=== PATIENT | female | born 1940 | race Caucasian/White ===

== ENCOUNTER → 2017-09-04 | Outpatient (CLI) | payer MEDICARE, OTHER ==
--- NOTE | 2017-09-05 08:44 | RAD ---
DATE: 09/04/2017 EXAM: MAMMO ELEN SCREENING BILATERAL HISTORY: Routine screening COMPARISON: 09/01/2016 This study was interpreted with the benefit of Computerized Aided Detection (CAD). The breast parenchyma is heterogeneously dense, which could reduce sensitivity of mammography. Breast parenchyma level C. FINDINGS: 2-D and 3-D tomosynthesis imaging was performed in CC and MLO projections. The fibroglandular tissues are heterogeneous in a somewhat nodular pattern. No new or enlarging breast densities seen. Benign type calcifications are again noted. No suspicious microcalcifications have developed. IMPRESSION: Stable mammograms without evidence of malignancy. BI-RADS CATEGORY: 2 BENIGN FINDING(S) RECOMMENDED FOLLOW-UP: 12M 12 MONTH FOLLOW-UP PQRS compliance statement: Patient information was entered into a reminder system with a target due date for the next mammogram. Mammography is a sensitive method for finding small breast cancers, but it does not detect them all and is not a substitute for careful clinical examination. A negative mammogram does not negate a clinically suspicious finding and should not result in delay in biopsying a clinically suspicious abnormality. "Our facility is accredited by the [employer] Mammography Program."
== END | disposition home or self-care (01) ==
LOC: MAMMO 12:55
PROVIDERS: ATTEND Internal Medicine
DX: Z12.31 Encounter for screening mammogram for malignant neoplasm of breast (principal)
CPT/HCPCS: 77063; 77067

== ENCOUNTER → 2018-09-05 | Outpatient (CLI) | payer MEDICARE, OTHER ==
--- NOTE | 2018-09-06 08:36 | RAD ---
DATE: 09/05/2018 EXAM: MAMMO ELEN SCREENING BILATERAL HISTORY: Routine screening COMPARISON: 09/04/2017 This study was interpreted with the benefit of Computerized Aided Detection (CAD). Breast Density: HETERO The breast parenchyma is heterogenously dense, which could reduce sensitivity of mammography. Breast parenchyma level C. FINDINGS: 2-D and 3-D tomosynthesis imaging was performed in CC and MLO projections. No new or enlarging breast densities are seen. Minimal benign type calcifications are present. No suspicious microcalcifications have developed. IMPRESSION: Stable mammograms without evidence of malignancy BI-RADS CATEGORY: 2 BENIGN FINDING(S) RECOMMENDED FOLLOW-UP: 12M 12 MONTH FOLLOW-UP PQRS compliance statement: Patient information was entered into a reminder system with a target due date for the next mammogram. Mammography is a sensitive method for finding small breast cancers, but it does not detect them all and is not a substitute for careful clinical examination. A negative mammogram does not negate a clinically suspicious finding and should not result in delay in biopsying a clinically suspicious abnormality. "Our facility is accredited by the [employer] Mammography [employer]."
== END | disposition home or self-care (01) ==
LOC: MAMMO 14:07
PROVIDERS: ATTEND Internal Medicine
DX: Z12.31 Encounter for screening mammogram for malignant neoplasm of breast (principal)
CPT/HCPCS: 77063; 77067

== ENCOUNTER → 2020-09-29 | Outpatient (CLI) | payer MEDICARE, OTHER ==
--- NOTE | 2020-09-29 13:44 | RAD ---
BILATERAL SCREENING MAMMOGRAM History: Routine screening. Comparison: Bilateral mammogram September 05, 2018. Technique: Routine digital mammogram views were obtained. Findings: Breast Tissue Density D :The breasts are extremely dense, which lowers the sensitivity of mammography . Parenchymal trabeculations have mildly increased. There is anterior skin thickening that is mildly wo rse. There are no dominant masses, suspicious microcalcifications or architectural distortion. There are a few benign calcifications, stable. IMPRESSION: 1. No mammographic evidence of malignancy. Recommend routine screening. 2. Bilateral parenchymal trabeculations have mildly increased. Bilateral anterior skin thickening is mildly worse. Considerations for these findings include volume overload or CHF or impaired central v enous return. Correlate for clinical symptoms. BI-RADS category 2: Benign findings. The images were reviewed with computer aided detection. Patient information is entered into the reminder system with a target due date for the next screening mammogram. Mammography is the most sensitive method for finding small breast cancers, but it does not detect the m all and is not a substitute for careful clinical examination. A negative mammogram does not negate a clinically suspicious finding and should not result in delay in biopsying a clinically suspicious a bnormality. "Our facility is accredited by the [employer] Mammography Program." Electronically signed by: Valerio Romero MD (09/29/2020 1:42 PM) [facility]
== END ==
LOC: MAMMO 08:20
PROVIDERS: ATTEND Internal Medicine
DX: Z12.31 Encounter for screening mammogram for malignant neoplasm of breast (principal)
CPT/HCPCS: 77067

== ENCOUNTER 2020-12-23 10:52 | Emergency (ER) | payer MEDICARE, OTHER ==
[~2020-12-23] VITALS: Ht 172.7 cm; Wt 57.0 kg
--- NOTE | 2020-12-23 11:24 | PHYS DOC ---
Adult General Chief Complaint Chief Complaint: SYNCOPE HPI HPI Patient is a pleasant 80-year-old female presenting for presyncopal event. Reports she was outside in the heat and humidity performing a group cardiovascular workout when near the end of her workout she started feeling lightheaded. She reports she acknowledged her symptoms is similar exertional syncope is happened in the past and she ambulated to local bench where she sat down for the remainder of the class. States she attempted to get up approximately 10 minutes later and became very presyncopal experiencing feelings of dizziness and lightheaded and so she was guided to the ground where she was advised to stay. EMS was called and evaluated patient who is found to be hemodynamically stable and feeling better. Patient's was also present and decision was made for her to transfer patient to our ER. On arrival, patient ambulatory and asymptomatic. States she thinks she "overdid it". States she has had no history of cardiovascular issues, no UT or stents. She is on baby aspirin only. Denies any falls. No changes in home medication. Review of Systems Review of Systems Fourteen body systems of review of systems have been reviewed. See HPI for pertinent positives and negative responses, other sharpe all other systems are negative, non-pertinent or non-contributory Physical Exam Physical Exam Constitutional: Pt is oriented to person, place, and time. Pt appears well-developed and well- nourished. HEENT: Head: Normocephalic and atraumatic. External ears unremarkable Conjunctivae and EOM are normal. Pupils are equal, round, and reactive to light. Oropharynx is clear and moist. No hematomas or lacerations or abrasions to face or scalp OP clear, no blood, no malocclusion, dentition intact Nares clear, no nasal septal hematoma Midface stable Neck: C-spine midline nontender, no step-offs Cardiovascular: Normal rate, regular rhythm and normal heart sounds. Pulmonary/Chest: Effort normal and breath sounds normal. No respiratory distress. No wheezes. CTA bilaterally Abdominal: Soft. Bowel sounds are normal. Pt exhibits no distension. There is no tenderness. Musculoskeletal: No bony tenderness to extremities, no deformities, full ROM extremities Chest wall stable Pelvis stable and non-tender No vertebral TTP and spine without stepoffs Neurological: Pt is alert and oriented to person, place, and time. Moving all extremities willfully, able to wiggle all fingers and toes Alert and oriented x 3 Motor and sensory function intact Downgoing toes bilaterally with stimulation NIH stroke scale 0 Skin: Skin is warm and dry. No abrasions, no lacerations Psychiatric: Behavior is appropriate for situation Current Patient Data Vital Signs Vital Signs Date Time Temp Pulse Resp B/P (MAP) Pulse Ox O2 Delivery O2 Flow Rate FiO2 12/23/20 11:16 98.5 91 16 124/79 (94) 99 Room Air Vital Signs Date Time Temp Pulse Resp B/P (MAP) Pulse Ox O2 Delivery O2 Flow Rate FiO2 12/23/20 11:16 98.5 91 16 124/79 (94) 99 Room Air Lab Results Laboratory Tests Test 12/23/20 11:30 12/23/20 13:35 White Blood Count 7.0 x10^3/uL Red Blood Count 3.01 x10^6/uL Hemoglobin 10.8 g/dL Hematocrit 32.8 % Mean Corpuscular Volume 109 fL Mean Corpuscular Hemoglobin 36 pg Mean Corpuscular Hemoglobin Concent 33 g/dL Red Cell Distribution Width 14.6 % Platelet Count 520 x10^3/uL Neutrophils (%) (Auto) 83 % Lymphocytes (%) (Auto) 8 % Monocytes (%) (Auto) 8 % Eosinophils (%) (Auto) 0 % Basophils (%) (Auto) 1 % Neutrophils # (Auto) 5.8 x10^3uL Lymphocytes # (Auto) 0.6 x10^3/uL Monocytes # (Auto) 0.5 x10^3/uL Eosinophils # (Auto) 0.0 x10^3/uL Basophils # (Auto) 0.1 x10^3/uL Sodium Level 132 mmol/L Potassium Level 5.5 mmol/L Chloride Level 100 mmol/L Carbon Dioxide Level 25 mmol/L Anion Gap 7 Blood Urea Nitrogen 38 mg/dL Creatinine 1.7 mg/dL Estimated GFR (Cockcroft-Gault) 28.8 Glucose Level 113 mg/dL Calcium Level 8.8 mg/dL Creatine Kinase 124 U/L Troponin I Quantitative < 0.017 ng/mL IT-Dvm-Y-Type Natriuretic Peptide 894 pg/mL Glucose (Fingerstick) 80 mg/dL Current Medications Medications (Trade) Dose Ordered Sig/Kori Route PRN Reason Start Time Stop Time Status Last Admin Dose Admin Sodium Chloride 500 ml @ 0 mls/hr 1X ONCE IV 12/23/20 12:45 12/23/20 12:46 DC 12/23/20 12:58 Insulin Human Regular (HumuLIN R VIAL) 2 unit 1X ONCE IV 12/23/20 13:00 12/23/20 13:02 DC 12/23/20 13:05 EKG EKG Twelve-lead obtained from monitor and nonconcerning for any acute ischemic findings or STEMI Radiology/Procedures Radiology/Procedures STUDY: 1. CT head without contrast 2. CT cervical spine without contrast INDICATION: Syncope with fall to back of head COMPARISON: None TECHNIQUE: Axial CT imaging of the head and cervical spine performed without the use of intravenous contrast. Sagittal and coronal reformats were obtained. One or more of the following individualized dose reduction techniques were utilized for this examination: 1. Automated exposure control 2. Adjustment of the mA and/or kV according to patient size 3. Use of iterative reconstruction technique. FINDINGS: CT HEAD: The ventricles and sulci are normal for the patient's age. No mass , midline shift , hemorrhage or acute infarct is present. Mild atrophy .Bone windows are normal without calvarial abnormality. The visualized orbits, paranasal sinuses and mastoid air cells are clear . CT CERVICAL SPINE: Slight reversal of cervical curvature. There is grade 1 anterolisthesis of C3 over C4 and C4 over C5.The vertebral body heights are maintained. Narrowing of several intervertebral disc spaces most noted C4/5 and C5/6 and C6/7 . Mild diffuse osteophytic spurring is redemonstrated. There is no jayro or retrolisthesis. No prevertebral soft tissue swelling is identified. There are no fractures. Multilevel bilateral apophyseal joint hypertrophic changes are seen . No definite lymphadenopathy or masses are seen within the neck. The visualized thyroid and salivary glands appears preserved. IMPRESSION: CT HEAD: 1. No acute intracranial process detected. CT CERVICAL SPINE: 1. Spondylotic changes and multilevel disc degenerative changes are seen throughout the cervical spine. No acute abnormality seen Electronically signed by: Parris Dodd MD (12/23/2020 12:09 PM) [facility] Heart Score C/O Chest Pain: No HEART Score for Chest Pain: HEART Score for Chest Pain Response (Comments) Value History Slighlty/Non-Suspicious 0 ECG Normal 0 Age > 65 2 Risk Factors >3 Risk Factors or Hx CAD 2 Troponin < Normal Limit 0 Total 4 Risk Factors: Risk Factors: DM, Current or recent (<one month) smoker, HTN, HLP, family history of CAD, obesity. Risk Scores: Risk Factors: DM, Current or recent (<one month) smoker, HTN, HLP, family history of CAD, obesity. Course & Med Decision Making Course & Med Decision Making ABCs unremarkable. I disclosed entirety of ER findings and discussed most likely diagnosis of presyncopal event likely due to physical exertion and/or dehydration. IV fluid rehydration provided while in ER for otherwise asymptomatic patient. Also reviewed finding of mild hyperkalemia with patient. Patient is on low-dose losartan, she does not feel comfortable discontinuing this with close outpatient follow-up. As such, joint decision was made to administer extremely low-dose insulin therapy inpatient who drinks several juices afterwards and is knowledgeable on need to continue eating in the short- term to avoid any hypoglycemic episodes. She tolerated insulin and fingerstick blood glucose on recheck was adequate. I did disclose this might be an acute presentation of more concerning pathology and discussed potential need for further diagnostic work-up and/or potential hospital admission but given that patient was feeling asymptomatic, ambulatory and overall well she wanted to go home. As such, I stressed need for close outpatient follow-up to review today's ER visit and to check her electrolytes. Strict return precautions were also discussed at length with good understanding by patient. Patient voiced understanding and agreement with the plan. Patient knows to come back for repeat evaluation if concerning signs or symptoms present prior to outpatient follow- up. Hemodynamically stable, ambulatory and well-appearing at time of disposition. Dragon Disclaimer Dragon Disclaimer This electronic medical record was generated, in whole or in part, using a voice recognition dictation system. Departure Departure: Impression: Primary Impression: Syncope Additional Impressions: Hyperkalemia Chronic kidney disease (CKD) Disposition: HOME / SELF CARE / HOMELESS Condition: STABLE Referrals: RAN BEY (PCP) Patient Instructions: Syncope Additional Instructions: You were seen for syncope. You should make sure to drink plenty of fluids. It is unclear what caused your symptoms but your initial evaluation did not show any concerning symptoms or features. As discussed, your symptoms were likely provoked by excessive exertion. Your vital signs, physical examination and comprehensive work-up were grossly unremarkable for any emergent or surgical issues. I did disclose finding of high potassium which we addressed today by giving insulin, please ensure you continue good food intake today to ensure your sugar levels do not drop. You will need to follow-up with your primary care physician for repeat lab values to ensure you are potassium level is not elevated, please get this done within upcoming 3 to 5 days. In addition, it was disclosed that you had chronic kidney disease which is at baseline, please follow-up with your primary care physician for this. Return to the ED immediately if you develop worsening symptoms, chest pain, shortness of breath, numbness, tingling, weakness, vision change, or any other new or concerning symptoms. Problem Qualifiers LEAH RODRIGUEZ DO Dec 23, 2020 11:24
[2020-12-23 12:05] LABS: BASO # 0.1 x10^3/uL (0.0-0.2); BASO % 1 % (0-3); EOS % 0 % (0-3); HEMATOCRIT 32.8 % (36.0-47.0); HEMOGLOBIN 10.8 g/dL (12.0-15.5); LYMPH # 0.6 x10^3/uL (1.0-4.8); LYMPH % 8 % (24-48); MEAN CORPUSCULAR HEMOGLOBIN 36 pg (25-35); MEAN CORPUSCULAR HGB CONC 33 g/dL (31-37); MEAN CORPUSCULAR VOLUME 109 fL (79-100); MONO # 0.5 x10^3/uL (0.0-1.1); MONO % 8 % (0-9); NEUT # 5.8 x10^3uL (1.8-7.7); NEUT % 83 % (31-73); PLATELET COUNT 520 x10^3/uL (140-400); RED BLOOD COUNT 3.01 x10^6/uL (3.50-5.40); RED CELL DISTRIBUTION WIDTH 14.6 % (11.5-14.5)
--- NOTE | 2020-12-23 12:11 | RAD ---
STUDY: 1. CT head without contrast 2. CT cervical spine without contrast INDICATION: Syncope with fall to back of head COMPARISON: None TECHNIQUE: Axial CT imaging of the head and cervical spine performed without the use of intravenous contrast. Sagittal and coronal reformats were obtained. One or more of the following individualized dose reduction techniques were utilized for this examinat ion: 1. Automated exposure control 2. Adjustment of the mA and/or kV according to patient size 3. Use of iterative reconstruction technique. FINDINGS: CT HEAD: The ventricles and sulci are normal for the patient's age. No mass , midline shift , hemorrhage or ac [place] infarct is present. Mild atrophy .Bone windows are normal without calvarial abnormality. The vis ualized orbits, paranasal sinuses and mastoid air cells are clear . CT CERVICAL SPINE: Slight reversal of cervical curvature. There is grade 1 anterolisthesis of C3 over C4 and C4 over C5. The vertebral body heights are maintained. Narrowing of several intervertebral disc spaces most note d C4/5 and C5/6 and C6/7 . Mild diffuse osteophytic spurring is redemonstrated. There is no jayro or retrolisthesis. No prevertebral soft tissue swelling is identified. There are no fractures. Multile helen bilateral apophyseal joint hypertrophic changes are seen . No definite lymphadenopathy or masses are seen within the neck. The visualized thyroid and salivary glands appears preserved. IMPRESSION: CT HEAD: 1. No acute intracranial process detected. CT CERVICAL SPINE: 1. Spondylotic changes and multilevel disc degenerative changes are seen throughout the cervical spi ne. No acute abnormality seen Electronically signed by: Parris Dodd MD (12/23/2020 12:09 PM) [facility] WESTDontae
[2020-12-23 12:19] LABS: CALCIUM 8.8 mg/dL (8.5-10.1); CREATININE 1.7 mg/dL (0.6-1.0); GFR 28.8; POTASSIUM 5.5 mmol/L (3.5-5.1)
[2020-12-23] MEDS: IV NORMAL SALINE 500ML 500 ML IV ONE (12:58)
[2020-12-23] MEDS: INSULIN REGULAR 100 UNIT/ML 3ML VIAL. IV ONE (13:05)
[2020-12-23 13:09] VITALS: BP 142/80
--- NOTE | 2020-12-23 20:17 | EKG ---
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
== END 2020-12-23 14:11 | disposition home or self-care (01) ==
LOC: ER 10:52
DX: R55 Syncope and collapse (principal); E87.5 Hyperkalemia; N18.9 Chronic kidney disease, unspecified; R42 Dizziness and giddiness
CPT/HCPCS: 36415; 70450; 71045; 72125; 80048; 82550; 82947; 83880; 84484; 85025; 93005; 96361; 96374; 99285; J1815; J7040